=== PATIENT | female | born 2000 | race African-American/Black ===

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

== ENCOUNTER 2019-11-30 10:12 | Emergency (ER) | payer OTHER ==
[~2019-11-30] VITALS: Ht 162.6 cm; Wt 68.0 kg
[2019-11-30 10:15] VITALS: BP 118/79
[2019-11-30] MEDS ORDERED: ONDANSETRON 4MG ODT PO ONE (10:30)
[2019-11-30 11:06] LABS: *AMPHETAMINES SCREEN URINE NEGATIVE (NEGATIVE); *BARBITURATES SCREEN URINE NEGATIVE (NEGATIVE)
[2019-11-30 11:07] LABS: *BENZODIAZEPINES SCREEN URINE NEGATIVE (NEGATIVE); *COCAINE SCREEN URINE NEGATIVE (NEGATIVE); METHADONE URINE SCREEN NEGATIVE (NEGATIVE); OPIATES URINE SCREEN NEGATIVE (NEGATIVE)
[2019-11-30 11:08] LABS: PHENCYCLIDINE URINE SCREEN NEGATIVE (NEGATIVE)
[2019-11-30 11:21] LABS: CANNABINOID URINE SCREEN PRESUMTIVE POSITIVE (NEGATIVE)
== END 2019-11-30 11:46 | disposition left against medical advice (07) ==
LOC: ER 10:12
DX: F12.129 Cannabis abuse with intoxication, unspecified (principal); F41.1 Generalized anxiety disorder; R11.0 Nausea; F31.9 Bipolar disorder, unspecified; F20.9 Schizophrenia, unspecified; F17.210 Nicotine dependence, cigarettes, uncomplicated
CPT/HCPCS: 80305; 81025; 99283; 99406; Q0162